=== PATIENT | male | born 1995 ===

== ENCOUNTER 2022-03-23 04:41 | Emergency (ER) | payer SELFPAY ==
[2022-03-23 06:04] LABS: BASOPHIL 0.2 % (0-2); EOSINOPHIL 0 % (0-5); HCT 42.8 % (42.0-52.0); LYMPHOCYTE 23.9 % (15-48); MCH 29.4 pg (25.0-31.0); MCV 83.8 fL (78.0-100.0); MONOCYTE 7.9 % (0-12); MPV 10.4 fL (6.0-9.5); NEUTROPHIL 67.7 % (41-80); NRBC 0; PLT 239 K/uL (150-400); RBC 5.11 M/uL (4.70-6.00); WBC 14.9 K/uL (4.0-10.5)
[2022-03-23 06:26] LABS: ALBUMIN 4.3 g/dL (3.4-5.0); BILIRUBIN - TOTAL 0.8 mg/dL (0.2-1.0); BUN/CREAT RATIO (CALC) 14.9 RATIO; CREATININE 1.01 mg/dL (0.67-1.17); GLOBULIN (CALCULATION) 3.2 g/dL; TOTAL PROTEIN 7.5 g/dL (6.4-8.2)
== END 2022-03-23 07:00 | disposition home or self-care (01) ==
LOC: FER 04:41
PROVIDERS: Emergency Medicine
DX: R55 Syncope and collapse (principal); Z28.310 Unvaccinated for COVID-19
CPT/HCPCS: 36415; 80053; 84484; 85025; 93005; J1885; J7030